=== PATIENT | female | born 1985 | race Caucasian/White ===

== ENCOUNTER 2017-11-18 02:39 | Emergency (ER) | payer OTHER ==
[~2017-11-18] VITALS: Ht 162.6 cm; Wt 72.6 kg
[~2017-11-18 02:39] MED LIST: BENADRYL25 MG; CLINDAMYCIN HC150 MG PO; KEFLEX500 MG PO; PREDNISONE 10 M10 MG PO; TRINATE TABLET1 TAB PO
[2017-11-18] MEDS ORDERED: PREDNISONE 20 M20 MG PO (04:07)
[2017-11-18] MEDS ORDERED: ZANTAC 150MG T150 MG PO (04:07)
[2017-11-18 05:05] VITALS: BP 117/76
[2017-11-19] MEDS ORDERED: PREDNISONE 20 M20 MG PO (05:10)
== END 2017-11-18 05:05 | disposition home or self-care (01) ==
LOC: ER 02:39
DX: L25.8 Unspecified contact dermatitis due to other agents (principal); T36.8X5A Adverse effect of other systemic antibiotics, initial encounter; Y92.9 Unspecified place or not applicable

== ENCOUNTER 2017-11-19 03:34 | Emergency (ER) | payer OTHER ==
[~2017-11-19] VITALS: Ht 167.6 cm; Wt 72.6 kg
[~2017-11-19 03:34] MED LIST changes: +PREDNISONE 20 M20 MG PO; +ZANTAC 150MG T150 MG PO
[2017-11-19 05:09] VITALS: BP 109/69
[2017-11-19] MEDS ORDERED: PREDNISONE 20 M20 MG PO (05:10)
== END 2017-11-19 05:12 | disposition home or self-care (01) ==
LOC: ER 03:34
DX: L23.89 Allergic contact dermatitis due to other agents (principal); T36.8X5A Adverse effect of other systemic antibiotics, initial encounter; Z88.1 Allergy status to other antibiotic agents; Z88.6 Allergy status to analgesic agent; Y92.9 Unspecified place or not applicable